=== PATIENT | female | born 1950 | race Caucasian/White ===

== ENCOUNTER 2018-05-07 06:42 | Day surgery (SDC) | payer MEDICARE, MEDICAID ==
[~2018-05-07] VITALS: Ht 149.9 cm; Wt 46.5 kg
[~2018-05-07 06:42] MED LIST: SODIUM CHLORIDE 0.9% 1,000 ML IV ONE
[2018-05-07] MEDS ORDERED: FentaNYL CITRATE-PF 100 MCG/2 ML VIAL ONE (07:28)
[2018-05-07] MEDS ORDERED: MIDAZOLAM HCL 2 MG/2 ML VIAL ONE (07:28)
[2018-05-07] MEDS ORDERED: BUDE10.2 IH (07:30)
[2018-05-07] MEDS ORDERED: LEVO500 PO (07:30)
[2018-05-07] MEDS ORDERED: DICL4100G TP (07:30)
[2018-05-07] MEDS ORDERED: ALBU8.5H8 IH (07:30)
[2018-05-07] MEDS ORDERED: MONT10TA21 PO (07:30)
[2018-05-07] MEDS ORDERED: METF-445 PO (07:30)
[2018-05-07] MEDS ORDERED: PRED10 PO (07:30)
[2018-05-07] MEDS ORDERED: IPRA4AER IH (07:30)
[2018-05-07] MEDS ORDERED: PROP20TA18 PO (07:30)
[2018-05-07] MEDS ORDERED: INSU300I SQ (07:30)
[2018-05-07] MEDS ORDERED: FLUT16H NASAL (07:30)
[2018-05-07] MEDS ORDERED: GABA-529 PO (07:30)
[2018-05-07] MEDS ORDERED: HYDR-4061 PO (07:30)
[2018-05-07] MEDS ORDERED: ALBU8HFA IH (07:30)
[2018-05-07 08:09] LABS: GLUCOMETER DEV NAME(LOC) SDS.; GLUCOSE,POINT OF CARE 77 MG/DL (70-110)
[2018-05-07] MEDS ORDERED: MethylPREDNISolone SOD SUCC 125 MG/2 ML VIAL IVP ONE (09:15)
[2018-05-07] MEDS ORDERED: MethylPREDNISolone SOD SUCC 125 MG/2 ML VIAL ONE (09:22)
[2018-05-07] MEDS ORDERED: BENZOCAINE 20% 50 MCG/SPRAY 57 GM TP ONE (12:00)
[2018-05-07] MEDS ORDERED: LIDOCAINE 4% 50 ML SOLUTION TP ONE (12:00)
[2018-05-07] MEDS ORDERED: LIDOCAINE 2% 5 ML JELLY TP ONE (12:00)
[2018-05-07] MEDS ORDERED: ALBUTEROL SULFATE 2.5 MG/0.5 ML NEB SOLUTION NEB ONE (12:00)
[2018-05-07] MEDS ORDERED: OXYGEN THERAPY IH SCH (20:00)
== END 2018-05-07 10:35 | disposition home or self-care (01) ==
LOC: SURGERY 06:42
PROVIDERS: ATTEND Internal Medicine Critical Care Medicine
DX: J38.4 Edema of larynx (principal); B37.0 Candidal stomatitis; E11.9 Type 2 diabetes mellitus without complications; I10 Essential (primary) hypertension; Z98.890 Other specified postprocedural states; J43.9 Emphysema, unspecified
CPT/HCPCS: 31623; 31624; 71045; 82962; 87015; 87070; 87101; 87205; 87206; 87220; 88108; 88312; J2250; J2930; J3010; J7030

== ENCOUNTER → 2019-09-07 | Outpatient (CLI) | payer MEDICARE, OTHER ==
[~2019-09-07] MED LIST changes: +ALBU8.5H8 IH; +ALBU8HFA IH; +BUDE10.2 IH; +DICL4100G TP; +FLUT16H NASAL; +GABA-1216 PO; +HYDR-4061 PO; +INSU300I SQ; +IPRA4AER IH; +LEVO-72 PO; +METF-445 PO; +MONT10TA21 PO; +PRED10 PO; +PROP20TA18 PO; -SODIUM CHLORIDE 0.9% 1,000 ML IV ONE
== END | disposition home or self-care (01) ==
LOC: LABMN 11:35 → EDSTATUS 09-11 09:00
PROVIDERS: ATTEND Internal Medicine Critical Care Medicine
DX: J47.9 Bronchiectasis, uncomplicated (principal); J84.9 Interstitial pulmonary disease, unspecified; R05 Cough; Z20.828 Contact with and (suspected) exposure to other viral communicable diseases
CPT/HCPCS: U0003-CS

== ENCOUNTER 2019-12-25 10:56 | Emergency (ER) | payer MEDICARE, OTHER ==
[~2019-12-25] VITALS: Ht 157.5 cm; Wt 44.1 kg
[~2019-12-25 10:56] MED LIST changes: +MONT-35 PO; -MONT10TA21 PO
[2019-12-25 13:34] LABS: COVID AG,FIA SOURCE NASOPHARYNGEAL
[2019-12-25 14:00] VITALS: BP 134/67
== END 2019-12-25 14:30 | disposition home or self-care (01) ==
LOC: EMS 10:56
DX: J44.9 Chronic obstructive pulmonary disease, unspecified (principal); J45.909 Unspecified asthma, uncomplicated; E11.9 Type 2 diabetes mellitus without complications; Z20.828 Contact with and (suspected) exposure to other viral communicable diseases; Z79.84 Long term (current) use of oral hypoglycemic drugs
CPT/HCPCS: 71045; 87426; 99284; C9803; U0003